=== PATIENT | male | born 1955 | race Caucasian/White ===

== ENCOUNTER 2016-10-10 11:55 | Outpatient (CLI) | payer MEDICARE, OTHER ==
[2016-10-10] VITALS (12 sets, daily range): BP systolic 121–151; BP diastolic 60–86; Ht 175.3 cm; Wt 92.7 kg
[~2016-10-10] VITALS: Ht 175.3 cm; Wt 92.7 kg
[2016-10-10 11:48] LABS: BASOPHILS 0.2 % (0.0-2.0); EOSINOPHILS 4.8 % (0-7); HEMATOCRIT 39.2 % (42.0-54.0); HEMOGLOBIN 12.9 g/dL (13.5-17.5); IMMATURE GRANULOCYTES 0.2 % (0-5); MCH 31.6 pg (26.0-34.0); MCHC 32.9 g/dL (31.0-37.0); MCV 96.1 fL (80.0-100.0); MEAN PLATELET VOLUME 9.8 fL (7.4-10.4); MONOCYTES 10.8 % (2-11); PLATELET COUNT 160 10x3/uL (130-400); RBC 4.08 10x6/uL (4.20-6.10); RDW 14.2 % (11.5-14.5); WBC 5.2 10x3/uL (4.8-10.8)
[~2016-10-10 11:55] MED LIST: CYCLOBENZAPRINE10 MG PO; HYDROCODON-ACE1 EAC7 PO; LISINOPRIL5 MG PO; MULTIPLE VITAMI1 TA1 PO; PRILOSEC20 MG PO; VITAMIN D31000 UNI2 PO
[2016-10-10 12:02] LABS: APTT 29.9 SECONDS (22.8-39.4); INR 0.96 (0.85-1.17); PROTIME 12.6 SECONDS (11.6-15.0)
[2016-10-10 12:05] LABS: CALC OSMOLALITY 287 mosm/kg (275-300); CALCIUM 8.9 mg/dL (8.5-10.1); CHLORIDE - SERUM 109 mmol/L (98-107); CREATININE - SERUM 0.9 mg/dL (0.6-1.3); GLUCOSE 93 mg/dL (74-106); POTASSIUM - SERUM 4.2 mmol/L (3.5-5.1); SODIUM 144 mmol/L (136-145); UREA NITROGEN 15 mg/dL (7-18); eGFR NON AFRICAN AMERICAN > 90 mL/min (90-120)
[2016-10-10 12:51] LABS: ALBUMIN 3.3 g/dL (3.4-5.0); ALKALINE PHOSPHATASE 57 U/L (46-116); ALT (SGPT) 23 U/L (10-68); BILIRUBIN - TOTAL 0.27 mg/dL (0.2-1.3); PROTEIN - SERUM 6.7 g/dL (6.4-8.2)
--- NOTE | 2016-10-10 15:07 | NUR ---
PER ANESTHESIA, SHORT STAY PATIENT
--- NOTE | 2016-10-10 15:50 | NUR ---
PATIENT ALERT IN HIGH LYNN POSITION WITH PRESENT. RESPIRATIONS EVEN AND UNLABORED. VITAL SIGNS STABLE. DENIES PAIN. DRESSINGS X2 NOTED TO RIGHT SIDE. CLEAN, DRY AND INTACT. LEFT CHEST INFUSAPORT ACCESSED. DRESSING INTACT. NO REDNESS OR INFLAMMATION NOTED TO SITE. DENIES NEEDS. SIDE RAILS UP X2. BED IN LOW POSITION. CALL LIGHT IN REACH.
--- NOTE | 2016-10-10 17:20 | NUR ---
PATIENT IN MID LYNN POSITION RESTING WITH EYES CLOSED. RESPIRATIONS EVEN AND UNLABORED. VITAL SIGNS STABLE. SIDE RAILS UP X2. BED IN LOW POSITION. CALL LIGHT IN REACH.
--- NOTE | 2016-10-10 19:30 | NUR ---
PT RECEIVED RESTING IN BED WITH EYES CLOSED. NO S/S OF DISTRESS NOTED. PT AROUSES TO VERBAL STIMULI. ALERT AND ORIENTED X4. PT DENIES PAIN AT THIS TIME. LUNG SOUNDS CLEAR BILATERALLY. LEFT INFUSAPORT NOTED TO BE SALINE LOCKED AT THIS TIME. BED IN LOW POSITION. SIDE RAILS UP X2. CALL LIGHT AND H2O IN PT REACH.
[2016-10-11 04:00] VITALS: BP 135/70
--- NOTE | 2016-10-11 04:31 | NUR ---
PT LYING IN BED RESTING, EYES CLOSED. RESPIRATION EVEN, UNLABORED. NO DISTRESS NOTED. CONTINUE NURSING HOME DIRECTOR'S PLAN OF CARE.
[2016-10-11 06:16] LABS: HEMATOCRIT 38.9 % (42.0-54.0); HEMOGLOBIN 12.8 g/dL (13.5-17.5)
--- NOTE | 2016-10-11 07:40 | NUR ---
ASSESSMENT PER FLOW SHEET.PT WITHOUT DISTRESS.DRESSING TO RIGHT CDI X2.DENIES NEEDS.CALL LIGHT IN REACH
[2016-10-11 07:57] VITALS: BP 129/66
[2016-10-11] MEDS ORDERED: CIPRO250 MG PO (10:55)
[2016-10-11] MEDS ORDERED: FLAGYL500 MG PO (10:56)
--- NOTE | 2016-10-11 11:14 | NUR ---
PORT FLUSHED,NEEDLE D'D.DISCHARGE INSTRUCTIONS,STATES UNDERSTANDING.
--- NOTE | 2016-10-11 11:18 | NUR ---
LEFT UNIT VIA WHEELCHAIR FOR TRANSPORTHOME
== END 2016-10-11 11:20 | disposition home or self-care (01) ==
LOC: D.OPS 11:55 → D.CT 13:00 → D.MS 15:15 → D.OPS 10-11 11:20
PROVIDERS: Specialist
DX: C78.7 Secondary malignant neoplasm of liver and intrahepatic bile duct (principal)

== ENCOUNTER 2019-06-25 05:30 | Day surgery (SDC) | payer MEDICARE, OTHER ==
[2019-06-24 12:43] LABS: APTT 32.8 SECONDS (22.8-39.4); INR 1.26 (0.85-1.17); PROTIME 15.3 SECONDS (11.6-15.0)
[2019-06-24 13:43] LABS: BASOPHILS 0.3 % (0-2); EOSINOPHILS 1.8 % (0-7); HEMATOCRIT 37.4 % (42.0-54.0); HEMOGLOBIN 11.9 g/dL (13.5-17.5); IMMATURE GRANULOCYTES 0.5 % (0-5); LYMPHOCYTES 9.9 % (15-50); MCH 28.9 pg (26.0-34.0); MCHC 31.8 g/dL (31.0-37.0); MCV 90.8 fL (80.0-100.0); MEAN PLATELET VOLUME 9.7 fL (7.4-10.4); MONOCYTES 10.7 % (2-11); NEUTROPHILS 76.8 % (40-80); RBC 4.12 10x6/uL (4.20-6.10); RDW 14.8 % (11.5-14.5); WBC 10.1 10x3/uL (4.8-10.8)
[2019-06-24 13:54] LABS: PLATELET COUNT 204 10x3/uL (130-400)
[~2019-06-25] VITALS: Ht 175.3 cm; Wt 70.8 kg
--- NOTE | ~2019-06-25 | OP ---
PATIENT NAME: RITESH JAIN MEDICAL RECORD: [id number] :51 LOCATION:[facility] ADMISSION DATE: SURGEON: MARQUES KUMAR MD DATE OF OPERATION: 06/25/2019 PREOPERATIVE DIAGNOSES: Lumbar spinal stenosis L2-L3 with bilateral foraminal stenosis. POSTOPERATIVE DIAGNOSES: Lumbar spinal stenosis L2-L3 with bilateral foraminal stenosis. PROCEDURE: Lumbar laminectomy at L2-L3 on the right with sublaminar decompression using METRx retractor at L2-L3 bilaterally. SURGEON: Marques Kumar MD DESCRIPTION AND TECHNIQUE: After induction of general endotracheal anesthesia, the patient was rolled prone on a Pro frame. Lumbar spine was prepped and draped in usual sterile fashion. Fluoroscopic x-ray and spinal needle localized the L2-L3 interspace on the right side. After infiltration of 1:100,000 epinephrine and 1% lidocaine, a stab incision was created with a #11 blade. Series of dilators was used to advance a METRx retractor to the L2-L3 interspace on the right side. Level was confirmed with fluoroscopic x-ray. A microscope and Midas Tomas drill were used to perform a laminectomy, medial facetectomy, and foraminotomy at L2-L3 on the right. Hypertrophied ligamentum flavum was removed with Cloward rongeurs. The spinous processes at L2 and L3 were undermined with Midas-Tomas drill. The retractor was tilted to the opposite side. Hypertrophied ligamentum flavum was removed from the opposite side of the Cloward rongeurs under microscopic illumination. Meticulous hemostasis was maintained throughout the wound. The wound was irrigated with copious amounts of Ancef irrigant solution. Retractors removed. The fascia was closed with 3-0 Vicryl sutures. The skin was closed with nellie. A sterile dressing was applied to the wound. The patient was awakened in good condition and taken to recovery. All counts were reported as correct. Estimated blood loss was minimal. TRANSINT:[id number] Voice Confirmation ID: [id number] DOCUMENT ID: [id number] MARQUES KUMAR MD CC: [id number] DICTATION DATE: 07/05/19 1033 GRAVURE PRESS OPERATOR: 07/05/19 1804 [facility] 06/25/19 [id number] [place] [id number]
[~2019-06-25 05:30] MED LIST changes: +CIPRO250 MG PO; +FLAGYL500 MG PO; +HYSINGLA ER20 MG PO; +LIDODERM 5 %1 PATCH TRANSDERM; +VITAMIN B-122500 MCG PO
[2019-06-25] MEDS ORDERED: HYSINGLA ER20 MG PO (06:14)
[2019-06-25 06:16] VITALS: BP 141/84; Ht 175.3 cm; Wt 70.8 kg
[2019-06-25] MEDS ORDERED: PERCOCET 10-321 EAC1 PO (09:32)
--- NOTE | 2019-06-25 15:19 | NUR ---
0958-REC'D FROM RR. AWAKE AND ALERT. DENIES PAIN.VSS. DRESSING TO BACK CDI. CL IN EASY REACH. FAMILY AT BEDSIDE.
--- NOTE | 2019-06-25 15:20 | NUR ---
1030-FULL LIQUID TRAY TO ROOM.VSS. DENIES PAIN
--- NOTE | 2019-06-25 15:20 | NUR ---
1100-DISCHARGE CRITERIA MET. REMOVED IV WITH CATH INTACT,DISPOSED INTO SHARPS.COVERED SITE WITH GUAZE,SECURED WITH MEDIPORE TAPE.
--- NOTE | 2019-06-25 15:23 | NUR ---
1117-REVIEWED POST OPERATIVE INSTRUCTIONS AND FOLLOW UP APPOINTMENT.VERBALIZED UNDERSTANDING. ESCORTED OUT VIA W/C WITH SPOUSE AWAITING TO DRIVE HOME
== END 2019-06-25 11:17 | disposition home or self-care (01) ==
LOC: D.OPS 05:30 → D.PAN 07:30 → D.OPS 11:17
PROVIDERS: Anesthesiology; ATTEND Neurological Surgery
DX: M48.061 Spinal stenosis, lumbar region without neurogenic claudication (principal); M54.16 Radiculopathy, lumbar region